=== PATIENT | female | born 1995 | race Caucasian/White ===

== ENCOUNTER 2017-03-23 00:50 | Emergency (ER) | payer OTHER ==
[~2017-03-23] VITALS: Ht 165.1 cm; Wt 110.5 kg
[~2017-03-23 00:50] MED LIST: PREN-64 PO
[2017-03-23 01:17] VITALS: BP 135/84
[2017-03-23] MEDS ORDERED: PredniSONE 20 MG TABLET PO ONE (01:30)
== END 2017-03-23 01:44 | disposition home or self-care (01) ==
LOC: EMS 00:52
DX: L50.9 Urticaria, unspecified (principal); T78.40XA Allergy, unspecified, initial encounter; I10 Essential (primary) hypertension; X58.XXXA Exposure to other specified factors, initial encounter
CPT/HCPCS: 99283; J7512

== ENCOUNTER 2019-04-10 23:13 | Emergency (ER) | payer OTHER ==
[~2019-04-10] VITALS: Ht 167.6 cm; Wt 102.3 kg
[2019-04-11] MEDS ORDERED: PredniSONE 20 MG TABLET PO ONE (00:15)
[2019-04-11] MEDS ORDERED: ACETAMINOPHEN 500 MG TABLET PO ONE (00:15)
[2019-04-11 00:38] VITALS: BP 128/78
== END 2019-04-11 00:42 | disposition home or self-care (01) ==
LOC: EMS 23:15
DX: J06.9 Acute upper respiratory infection, unspecified (principal); L50.9 Urticaria, unspecified; I10 Essential (primary) hypertension
CPT/HCPCS: 99283; J7512

== ENCOUNTER 2019-06-05 23:24 | Emergency (ER) | payer OTHER ==
[~2019-06-05] VITALS: Ht 165.1 cm; Wt 118.2 kg
[2019-06-06 01:40] VITALS: BP 125/76
[2019-06-06] MEDS ORDERED: KETOROLAC TROMETHAMINE 60 MG/2 ML VIAL IM ONE (01:45)
== END 2019-06-06 02:02 | disposition home or self-care (01) ==
LOC: EMS 23:25
DX: M94.0 Chondrocostal junction syndrome [Tietze] (principal); R07.89 Other chest pain; I10 Essential (primary) hypertension
CPT/HCPCS: 71045; 81025; 93005; 96372; 99283; J1885

== ENCOUNTER 2021-07-30 20:48 | Emergency (ER) | payer OTHER ==
[~2021-07-30] VITALS: Ht 165.1 cm; Wt 115.9 kg
[2021-07-31 00:08] LABS: BASOPHILS % (AUTO) 0.8 % (0.0-2.0); EOSINOPHILS % (AUTO) 0.5 % (1.0-6.0); HEMATOCRIT 41.8 % (36-46); HEMOGLOBIN 13.4 g/dL (12.0-16.0); LYMPHOCYTES # (AUTO) 2.2 K/uL (1.0-4.8); LYMPHOCYTES % (AUTO) 15.7 % (22.0-44.0); MEAN CORPUSCULAR HEMOGLOBIN 27.3 pg (26.0-34.0); MEAN CORPUSCULAR VOLUME 85 fL (80-100); MONOCYTES # (AUTO) 0.5 K/uL (0.1-1.0); MONOCYTES % (AUTO) 3.8 % (2.0-9.0); NEUTROPHILS # (AUTO) 11.1 K/uL (1.8-7.7); NEUTROPHILS % (AUTO) 79.2 % (40.0-70.0); PLATELET COUNT (AUTO) 285 K/uL (150-450); RED CELL DISTRIBUTION WIDTH 14.4 % (11.5-14.5)
[2021-07-31 00:18] LABS: ANION GAP 10 mmol/L (8-16); CALCIUM, TOTAL 8.9 mg/dL (8.8-10.5); CARBON DIOXIDE 26 mmol/L (22-29); CHLORIDE 105 mmol/L (98-107); CREATININE 0.93 mg/dL (0.60-1.30); GLOMERULAR FILTR. RATE CALC > 60 mL/min (>60); GLUCOSE,RANDOM 115 mg/dL (70-110); POTASSIUM 4.4 mmol/L (3.5-5.1); SODIUM SERUM 141 mmol/L (136-145); UREA NITROGEN, BLOOD 15 mg/dL (7-18)
[2021-07-31 00:33] LABS: ALANINE AMINOTRANSFERASE 52 U/L (12-78); ALBUMIN 3.9 g/dL (3.4-5.0); ALKALINE PHOSPHATASE 104 U/L (46-116); ASPARTATE AMINOTRANSFERASE 20 U/L (15-37); BILIRUBIN,TOTAL 0.3 mg/dL (0.1-1.0); HCG,QUANTITATIVE < 1 mIU/mL (0-6); TOTAL PROTEIN, SERUM 8.2 g/dL (6.4-8.2)
[2021-07-31 01:44] VITALS: BP 155/105
== END 2021-07-31 02:00 | disposition home or self-care (01) ==
LOC: EMS 20:51
DX: R55 Syncope and collapse (principal); Z20.822 Contact with and (suspected) exposure to COVID-19
CPT/HCPCS: 36415; 80053; 84484; 84702; 85025; 93005; 99284; U0003

== ENCOUNTER 2021-11-24 10:07 | Emergency (ER) | payer OTHER ==
[~2021-11-24] VITALS: Ht 165.1 cm; Wt 118.2 kg
[2021-11-24] MEDS ORDERED: HYD25 PO (11:52)
[2021-11-24] MEDS ORDERED: HYDR30CR39 TP (11:52)
[2021-11-24] MEDS ORDERED: DEXAMETHASONE 4 MG TABLET PO ONE ×2 (12:00)
[2021-11-24 12:07] VITALS: BP 138/80
== END 2021-11-24 12:18 | disposition home or self-care (01) ==
LOC: EMS 10:09
DX: L23.9 Allergic contact dermatitis, unspecified cause (principal); I10 Essential (primary) hypertension
CPT/HCPCS: 99283; J8540